=== PATIENT | female | born 1940 | race Caucasian/White ===

== ENCOUNTER 2017-10-08 11:02 | Emergency (ER) | payer OTHER ==
[2017-10-08 11:25] VITALS: BP 106/51; PULSE 67; TEMP 97.7; BMI 23.2
--- NOTE | 2017-10-08 13:04 | PDOC ---
History of Present Illness - General Chief Complaint: Respiratory Stated Complaint: COUGH Time Seen by Provider: 10/08/17 12:37 History Source: Patient Exam Limitations: No Limitations - History of Present Illness Initial Comments: 10/08/17 12:58 Patient is a [77-year-old female, history of anxiety, hypertension, high cholesterol, diabetes, gastric ulcer presents with one week of nasal drainage, dry cough, itchy watery eyes and macular pruritic lesions to the upper chest. She denies any chest pain or shortness of breath. No fever.] Past Medical History: [Denies]. Allergies: No known allergies Medications: [See Medication list] Family History: Non-contributory Social History: Denies smoking, alcohol use, or IVDU Review of Systems GENERAL/CONSTITUTIONAL: [No fever or chills. No weakness. No weight change.] HEAD, EYES, EARS, NOSE AND THROAT: [No change in vision. No ear pain or discharge. No sore throat. Pruritic Watery eyes] CARDIOVASCULAR: [No chest pain or shortness of breath.] RESPIRATORY: [Dry cough, no wheezing, or hemoptysis.] GASTROINTESTINAL: [No nausea, vomiting, diarrhea or constipation. No rectal bleeding.] GENITOURINARY: [No dysuria, frequency, or change in urination.] MUSCULOSKELETAL: [No joint or muscle swelling or pain. No neck or back pain.] SKIN : [No rash or easy bruising. Pruritic Macular lesions to chest] NEUROLOGIC: [No headache, vertigo, loss of consciousness, or loss of sensation.] Physical Exam: GENERAL: [The patient is awake, alert, and fully oriented, in no acute distress. ] EYES: [Pupils equal, round and reactive to light, extraocular movements intact, sclera anicteric, conjunctiva clear.] ENT: [Ears normal, nares patent, oropharynx clear without exudates. Moist mucous membranes. No uvula deviation, itchy watery eyes, redness around eyes. ] NECK: [Normal range of motion, supple without lymphadenopathy, JVD, or masses.] LUNGS: [Breath sounds equal, clear to auscultation bilaterally. No wheezes, and no crackles.] HEART: [Regular rate and rhythm, normal S1 and S2 without murmur, rub or gallop. ] ABDOMEN: [Soft, nontender, normoactive bowel sounds. No guarding, no rebound. No masses. No bruising or abrasions] MUSCULOSKELETAL: [Normal range of motion, no edema. No clubbing or cyanosis. No cords, erythema, or tenderness. No CVA Tenderness with fist.] NEUROLOGICAL: [Cranial nerves II through XII grossly intact. Normal speech, normal gait.] PSYCH: [Normal mood, normal affect. Anxious ] SKIN: [Warm, Dry, normal turgor, Macular lesions to upper chest.] Past History - Past Medical History Allergies/Adverse Reactions: Allergies Allergy/AdvReac Type Severity Reaction Status Date / Time No Known Allergies Allergy Verified 10/08/17 11:22 Home Medications: Ambulatory Orders Amlodipine Besylate 10 mg PO DAILY 07/13/15 Aspirin [ASA -] 81 mg PO DAILY 07/13/15 Donepezil HCl 5 mg PO DAILY 07/13/15 Escitalopram Oxalate [Lexapro -] 20 mg PO DAILY 07/13/15 Loratadine [Allergy Relief] 10 mg PO DAILY 07/13/15 Metoprolol Tartrate 25 mg PO DAILY 07/13/15 Mirtazapine 15 mg PO DAILY 07/13/15 Multivitamins [Multivit ([facility] Formulary)] 1 tab PO DAILY 07/13/15 Simvastatin [Zocor -] 20 mg PO HS 07/13/15 Fluticasone Prop 0.05% Nasal [Flonase -] 1 - 2 spray NS BID #1 spray.pump Hydrocortisone 0.5% Cream [Hytone 0.5% Cream -] 1 applic TP BID #1 tube Loratadine [Claritin -] 10 mg PO DAILY #30 tablet 10/08/17 COPD: No Diabetes: Yes GI Disorders: Yes (ulcers) HTN: Yes Hypercholesterolemia: Yes Psychiatric Problems: Yes (anxiety) - Surgical History Abdominal Surgery: Yes (ulcer) GI Surgery: Yes (?) - Immunization History Immunization Up to Date: Yes - Suicide/Smoking/Psychosocial Hx Smoking History: Current every day smoker Have you smoked in the past 12 months: Yes Number of Cigarettes Smoked Daily: 6 Cigars Per Day: 0 Information on smoking cessation initiated: No 'Breaking Loose' booklet given: 12/21/15 Hx Alcohol Use: Yes (1 beer daily) Drug/Substance Use Hx: No Substance Use Type: None Hx Substance Use Treatment: No *Physical Exam - Vital Signs Last Vital Signs Temp Pulse Resp BP Pulse Ox 97.7 F 67 19 106/51 98 10/08/17 11:22 10/08/17 11:22 10/08/17 11:22 10/08/17 11:22 10/08/17 11:22 Medical Decision Making - Medical Decision Making 10/08/17 13:02 A/P : Patient here for dry cough, itchy watery eyes, macular pruritic lesions to upper chest, patient does have Claritin and Flonase at home but have not been taking it clinical signs indicating allergy type symptoms in no acute distress. Patient with no chest pain or shortness of breath will DC patient with Flonase, Claritin new prescription and hydrocortisone cream to macular lesions of chest, follow-up with PMD in 2 days if symptoms persist if any chest pain or shortness of breath to return immediately to ER. *DC/Admit/Observation/Transfer Diagnosis at time of Disposition: Post-nasal drip, Rash and nonspecific skin eruption Seasonal allergies Qualifiers: Chronicity: acute Allergic rhinitis trigger: unspecified Qualified Code(s): J30.2 - Other seasonal allergic rhinitis - Discharge Dispostion Disposition: HOME Condition at time of disposition: Good Admit: No - Prescriptions Prescriptions: Fluticasone Prop 0.05% Nasal [Flonase -] 1 - 2 spray NS BID #1 spray.pump Hydrocortisone 0.5% Cream [Hytone 0.5% Cream -] 1 applic TP BID #1 tube Loratadine [Claritin -] 10 mg PO DAILY #30 tablet - Referrals Referrals: STAFF,NOT ON [Primary Care Provider] - - Patient Instructions Printed Discharge Instructions: Allergic Rhinitis Additional Instructions: Please start medications as prescribed if symptoms persist in 2 days follow-up with primary care doctor. If any chest pain or shortness of breath return immediately to ER - Post Discharge Activity
== END 2017-10-08 13:07 | disposition home or self-care (01) ==
LOC: JERFT 11:02
DX: J30.2 Other seasonal allergic rhinitis (principal); R21 Rash and other nonspecific skin eruption; I10 Essential (primary) hypertension; E78.00 Pure hypercholesterolemia, unspecified; E11.9 Type 2 diabetes mellitus without complications; F41.9 Anxiety disorder, unspecified
CPT/HCPCS: 99281-25

== ENCOUNTER 2019-02-24 12:02 | Emergency (ER) | payer OTHER ==
[2019-02-24 12:10] VITALS: BP 121/75; PULSE 75; TEMP 97.9; BMI 26.2
--- NOTE | 2019-02-24 13:04 | PDOC ---
History of Present Illness - General Chief Complaint: Vomiting Blood Stated Complaint: VOMITING Time Seen by Provider: 02/24/19 13:03 History Source: Patient Exam Limitations: No Limitations Past History - Travel Traveled outside of the country in the last 30 days: No Close contact w/someone who was outside of country & ill: No - Past Medical History Allergies/Adverse Reactions: Allergies Allergy/AdvReac Type Severity Reaction Status Date / Time No Known Allergies Allergy Verified 02/24/19 12:06 Home Medications: Ambulatory Orders Amlodipine Besylate 10 mg PO DAILY 07/13/15 Aspirin [ASA -] 81 mg PO DAILY 07/13/15 Donepezil HCl 5 mg PO DAILY 07/13/15 Escitalopram Oxalate [Lexapro -] 20 mg PO DAILY 07/13/15 Loratadine [Allergy Relief] 10 mg PO DAILY 07/13/15 Metoprolol Tartrate 25 mg PO DAILY 07/13/15 Mirtazapine 15 mg PO DAILY 07/13/15 Multivitamins [Multivit ([facility] Formulary)] 1 tab PO DAILY 07/13/15 Simvastatin [Zocor -] 20 mg PO HS 07/13/15 Fluticasone Prop 0.05% Nasal [Flonase -] 1 - 2 spray NS BID #1 spray.pump Hydrocortisone 0.5% Cream [Hytone 0.5% Cream -] 1 applic TP BID #1 tube Loratadine [Claritin -] 10 mg PO DAILY #30 tablet 10/08/17 COPD: No Diabetes: Yes GI Disorders: Yes (ulcers) HTN: Yes Hypercholesterolemia: Yes Psychiatric Problems: Yes (anxiety) - Surgical History Abdominal Surgery: Yes GI Surgery: Yes (?) - Immunization History Immunization Up to Date: Yes - Suicide/Smoking/Psychosocial Hx Smoking History: Former smoker Have you smoked in the past 12 months: No Number of Cigarettes Smoked Daily: 10 If you are a former smoker, when did you quit?: 4 Cigars Per Day: 0 Information on smoking cessation initiated: No 'Breaking Loose' booklet given: 08/07/14 Hx Alcohol Use: No Drug/Substance Use Hx: No Substance Use Type: Alcohol Hx Substance Use Treatment: No Abd/GI Specific PMHX - Complaint Specific PMHX Colitis: No Diverticulitis: No Gall Bladder Disease: No GERD: Yes Hepatitis: No Irritable Bowel Synd (IBS): No Pancreatitis: No GI Ulcer Disease: Yes (ulcer perf repair) Review of Systems - Review of Systems Able to Perform ROS?: Yes Is the patient limited Bengali proficient: No Constitutional: Yes: Weight Stable. No: Chills, Diaphoresis, Fever, Loss of Appetite, Malaise, Weakness HEENTM: No: Recent change in vision, Nose Congestion, Throat Pain, Throat Swelling, Difficulty Swallowing Respiratory: Yes: Cough (with reflux). No: Orthopnea, Shortness of Breath, Wheezing, Productive cough, Hemoptysis Cardiac (ROS): No: Chest Pain, Edema, Irregular Heart Rate, Lightheadedness, Palpitations, Syncope, Chest Tightness ABD/GI: Yes: Abdominal Distended, Nausea, Vomiting, Indigestion. No: Blood Streaked Bowels, Constipated, Diarrhea, Difficulty Swallowing, Poor Appetite, Poor Fluid Intake, Rectal Bleeding, Abdominal cramping, Tarry Stools : No: Burning, Dysuria, Frequency, Flank Pain, Hematuria, Pain, Urgency Musculoskeletal: No: Back Pain, Joint Pain, Muscle Weakness Integumentary: No: Rash Neurological: No: Headache, Numbness, Weakness, Unsteady Gait, Dizziness Psychiatric: No: Sleep Pattern Change, Change in Appetite Endocrine: No: Increased Urine, Change in Weight Hematologic/Lymphatic: No: Anemia, Blood Clots, Easy Bleeding, Easy Bruising All Other Systems: Reviewed and Negative *Physical Exam - Vital Signs Last Vital Signs Temp Pulse Resp BP Pulse Ox 97.9 F 75 18 121/75 97 02/24/19 12:06 02/24/19 12:06 02/24/19 12:06 02/24/19 12:06 02/24/19 12:06 - Physical Exam Comments: Vitals stable, pt afebrile. Pt in NAD, normal body habitus. Pt alert and oriented x3. computer networker generally intact, muscular strength and sensation intact. No midline spinal tenderness, step-offs, or crepitus. Head normocephalic, atraumatic. Eyes PERRLA, EOMI. Oropharynx without erythema or exudates, no LAD b/l. No nasal congestion, hearing intact. Clear heart sounds, S1/S2, no JVD, b/l pedal edema, or heart murmur. Clear lung sounds, no respiratory distress, wheezes, crackles, or accessory muscle use. No abdominal or CVA tenderness to palpation, no rebound, no guarding. Abdomen soft, non-distended, and with normoactive bowel sounds. Skin without jaundice or rash. 02/24/19 14:32 ED Treatment Course - LABORATORY CBC & Chemistry Diagram: 02/24/19 14:20 02/24/19 13:53 Medical Decision Making - Medical Decision Making Pt was seen at bedside, also will be seen by attending Dr. Ponce. Pt presenting with Considering worsening acid reflux/gastritis vs gastric/duodenal ulcer vs [place] -[place] 2/2 belching/coughing vs gastric perforation or Boeerhave vs ACS vs infectious (enteritis, pneumonia). Ordered work-up including CBC, CMP, coags, troponin, lipase, ECG, chest x-ray ( eval for free air). Provided viscous lidocaine, 30 mg PO maalox, 20 mg IV pepcid, and 1 L IV NS for improvement of epigastric discomfort/reflux. Will continue to reassess pt and monitor for symptomatic improvement. ECG: Sinus bradycardia, intervals WNL (HR 59, IL 178, QRS 82, QTc 437). No TWIs or significant ST segment changes. No significant changes from prior ECG. 02/24/19 14:32 Pt eloped before receiving discharge paperwork. 02/24/19 16:35 *DC/Admit/Observation/Transfer Diagnosis at time of Disposition: Epigastric pain Gastritis Qualifiers: Gastritis type: unspecified gastritis Chronicity: chronic Gastritis bleeding: presence of bleeding unspecified Qualified Code(s): K29.50 - Unspecified chronic gastritis without bleeding - Discharge Dispostion Disposition: ELOPED Condition at time of disposition: Improved Decision to Admit order: No - Referrals Referrals: Lorrie Graves DO [Staff Physician] - - Patient Instructions Printed Discharge Instructions: DI for Gastritis Additional Instructions: You were seen in the ER today for upper abdominal pain. The results of your labs and imaging today were normal. Please follow-up with your primary care doctor and GI (Dr. Graves) within 1-2 days to discuss your visit and make sure your symptoms have improved. Please return to the ER if you have any worsening pain, development of fevers or chills, loss of consciousness, inability to tolerate food or fluids, or any other concerns. - Post Discharge Activity
[2019-02-24] MEDS ORDERED: LIDOCAINE VISCOUS 2% ORAL/TOP 20 ML UNIT-DOSE CUP MM ONE (13:27)
[2019-02-24] MEDS ORDERED: MAG HYDROX/AL HYDROX/SIMETH 30 ML UNIT-DOSE CUP PO ONE (13:27)
[2019-02-24] MEDS ORDERED: FAMOTIDINE 20 MG/50 ML IVPB 20 MG/50 ML MG IVPB ONE ×2 (13:27→14:49)
[2019-02-24] MEDS ORDERED: SODIUM CHLORIDE 1,000 ML IV STA (13:27)
[2019-02-24 14:19] LABS: INR 0.97 (0.83-1.09); PROTHROMBIN TIME (PATIENT) 11.4 SEC (9.7-13.0)
[2019-02-24 14:24] LABS: ALBUMIN 3.3 g/dl (3.4-5.0); ALK PHOS 59 U/L (45-117); ANION GAP 4 MMOL/L (8-16); BILIRUBIN,TOTAL 0.3 mg/dL (0.2-1); BLOOD UREA NITROGEN 11 mg/dL (7-18); CHLORIDE 106 mmol/L (98-107); CO2 30 mmol/L (21-32); CREATININE 0.8 mg/dL (0.55-1.3); GLUCOSE,RANDOM 97 mg/dL (74-106); LIPASE 129 U/L (73-393); MAGNESIUM 2.3 mg/dL (1.8-2.4); POTASSIUM 4.7 mmol/L (3.5-5.1); SGOT/AST 14 U/L (15-37); SGPT/ALT 20 U/L (13-61); SODIUM 140 mmol/L (136-145)
[2019-02-24 14:29] LABS: EOS % 2.1 % (0-4.5); HEMATOCRIT 41.3 % (32.4-45.2); HEMOGLOBIN 13.7 GM/dL (10.7-15.3); LYMPH % 20.5 % (8-40); MCH 30.3 pg (25.7-33.7); MCHC 33.3 g/dl (32.0-36.0); MEAN CELL VOLUME 91.1 fl (80-96); MEAN PLT VOLUME 8.3 fl (7.5-11.1); MONO % 5.2 % (3.8-10.2); NEUT % 71.2 % (42.8-82.8); PLATELET COUNT 281 K/MM3 (134-434); RBC 4.53 M/mm3 (3.60-5.2); RDW 12.6 % (11.6-15.6); WHITE BLOOD COUNT 8.2 K/mm3 (4.0-10.0)
[2019-02-24] MEDS ORDERED: LIDOCAINE VISCOUS 2% ORAL/TOP 20 ML UNIT-DOSE CUP ONE (14:48)
[2019-02-24] MEDS ORDERED: MAG HYDROX/AL HYDROX/SIMETH 30 ML UNIT-DOSE CUP ONE (14:49)
--- NOTE | 2019-02-24 15:25 | PDOC ---
Documentation entered by Ale Nunez SCRIBE, acting as scribe for Risa Ponce MD. Risa Ponce MD: This documentation has been prepared by the Mayra loabto Sammi, SCRIBE, under my direction and personally reviewed by me in its entirety. I confirm that the documentation accurately reflects all work, treatment, procedures, and medical decision making performed by me. Attending Attestation - Resident Resident Name: Jeanine Paul - ED Attending Attestation I have performed the following: I have examined & evaluated the patient, The case was reviewed & discussed with the resident, I agree w/resident's findings & plan, Exceptions are as noted - HPI HPI: 02/24/19 14:26 The patient is a 79 year old female, with a significant PMH of alzheimer's, HTN , HLD, DM, gastritis (w/ ulcer repair), who presents to the emergency department for evaluation of worsening reflux symptoms for the past month. The patient states that she usually eats one big meal in the afternoon and experiences belching and other reflux symptoms at night. She notes that last night after some belching, she had 4 episodes of emesis with the last episode containing some traces of bright blood. Denies any vomiting since. Denies dark or bloody stools. Patient denies any trouble with tolerating PO. Patients last scope was about 2 years ago and reportedly revealed only gastritis. Denies heavy NSAID use. The patient denies shortness of breath, headache and dizziness. Denies fever, chills, nausea, vomit, diarrhea and constipation. Denies dysuria, frequency, urgency and hematuria. Allergies: NKA Social history: 1 beer every other day, about 4 cups of coffee a day PCP: Dr. Romero - Physicial Exam PE: 02/24/19 15:20 GENERAL: Awake, alert, and fully oriented, in no acute distress. Very pleasant. EYES: PERRLA, EOMI, sclera anicteric, conjunctiva clear ENT: Oropharynx clear without exudates. Moist mucosa NECK: Normal ROM, supple, no lymphadenopathy, JVD, or masses LUNGS: Breath sounds equal, clear to auscultation bilaterally. No wheezes, and no crackles HEART: Regular rate and rhythm, normal S1 and S2, no murmurs, rubs or gallops ABDOMEN: Soft, nontender, normoactive bowel sounds. No guarding, no rebound. No masses EXTREMITIES: Normal range of motion, no edema. No cords, erythema, or tenderness. WWP. NEUROLOGICAL: Normal speech, cranial nerves intact, equal strength and sensation b/l SKIN: Warm, Dry, normal turgor, no rashes or lesions noted. - Medical Decision Making 02/24/19 15:23 79yo F hx alzheimer's, HTN, HLD, DM, gastritis (w/ ulcer repair) presents to the ED with one episode of brb specks in emesis. Bleeding occurred after repetitive vomiting last night. Likely alex silvestre tear. No bleeding since last night. No chest pain, fevers, unlikely esophageal tear. Pt reports no current symptoms of abdominal pain, feels much better after pepcid, maalox, and viscous lidocaine. ABd exam benign. Labs wnl. EKG non ischemic. Likely GERD/gastritis with alex silvestre last night. Pt encouraged to f/u with GI within 1 week. Pt requests DC home REturn precautions given Pt eloped prior to receiving DC paperwork Heart Score/ECG Review #1 02/24/19 18:21 EKG read and interpreted by me: SInus bradycardia, rate 59. Normal axis and intervals. No JAYNA or TWI
--- NOTE | 2019-02-25 12:37 | EKG ---
Test Reason : Blood Pressure : / mmHG Vent. Rate : 059 BPM Atrial Rate : 059 BPM P-R Int : 178 ms QRS Dur : 082 ms QT Int : 442 ms P-R-T Axes : 033 044 060 degrees QTc Int : 437 ms SINUS BRADYCARDIA OTHERWISE NORMAL ECG Confirmed by MD VALENTÍN, LIANNE ([id number]) on 02/25/2019 12:37:32 PM Referred By: Confirmed By:LIANNE LAURA MD
== END 2019-02-24 16:20 | disposition left against medical advice (07) ==
LOC: JER 12:02
PROC: 3E033GC Introduction of Other Therapeutic Substance into Peripheral Vein, Percutaneous Approach (ICD-10-PCS; principal; 2019-02-24)
DX: K29.50 Unspecified chronic gastritis without bleeding (principal); I10 Essential (primary) hypertension; E11.9 Type 2 diabetes mellitus without complications; Z79.84 Long term (current) use of oral hypoglycemic drugs; E78.00 Pure hypercholesterolemia, unspecified; F41.9 Anxiety disorder, unspecified; Z87.11 Personal history of peptic ulcer disease
CPT/HCPCS: 36415; 71046-TC-FY; 80053; 83690; 83735; 84484; 85025; 85610; 93005; 93010; 96365; 99282-25; J7030

== ENCOUNTER 2019-12-10 19:26 | Observation (INO) | payer OTHER ==
[2019-12-10 19:40] VITALS: BMI 25.7
--- NOTE | 2019-12-10 19:44 | PDOC ---
History of Present Illness - General Chief Complaint: Chest Pain Stated Complaint: CHEST PAIN Time Seen by Provider: 12/10/19 19:42 - History of Present Illness Initial Comments: 12/10/19 21:23 79y/o F hx of alzheimer's, HTN, DM. HLD, anxiety, presents to the ER after overdosing on her medications about 6 hours ago. Per daughter at the bedside, she has taken the following medication in the below mentioned doses mirtazapine 15mg simvastatin 40mg norvasc 10mg lexapro 40mg ibandronate 300mg donepezil 10mg Pt reports having a verbal confrontation with another family member and getting agitated. EMS was called to the scene and brought her to hospital She currenly denies any chest pain,headache, lightheadedness, shortness of breath, palpitations, diarrhea, nausea or vomiting. pt can't remember why she took an extra dose of her medications and just reports feeling confused. Past History - Past Medical History Allergies/Adverse Reactions: Allergies Allergy/AdvReac Type Severity Reaction Status Date / Time No Known Allergies Allergy Verified 12/10/19 19:40 Home Medications: Ambulatory Orders Amlodipine Besylate 10 mg PO DAILY 07/13/15 Aspirin [ASA -] 81 mg PO DAILY 07/13/15 Donepezil HCl 5 mg PO DAILY 07/13/15 Escitalopram Oxalate [Lexapro -] 20 mg PO DAILY 07/13/15 Mirtazapine 15 mg PO DAILY 07/13/15 Simvastatin [Zocor -] 20 mg PO HS 07/13/15 COPD: No Diabetes: Yes GI Disorders: Yes (ulcers) HTN: Yes Hypercholesterolemia: Yes Psychiatric Problems: Yes (anxiety) - Surgical History Abdominal Surgery: Yes GI Surgery: Yes (?) - Immunization History Immunization Up to Date: Yes - Psycho Social/Smoking Cessation Hx Smoking History: Never smoked Have you smoked in the past 12 months: No Number of Cigarettes Smoked Daily: 10 If you are a former smoker, when did you quit?: 4 Cigars Per Day: 0 'Breaking Loose' booklet given: 08/07/14 Hx Alcohol Use: No Drug/Substance Use Hx: No Substance Use Type: Alcohol Hx Substance Use Treatment: No Review of Systems - Review of Systems Constitutional: No: Chills, Fever Respiratory: No: Cough, Shortness of Breath Cardiac (ROS): No: Chest Pain, Palpitations ABD/GI: No: Diarrhea, Nausea, Vomiting Integumentary: No: Bruising, Change in Color Neurological: No: Headache *Physical Exam - Vital Signs Last Vital Signs Temp Pulse Resp BP Pulse Ox 97.8 F 78 18 150/70 98 12/10/19 19:37 12/10/19 19:37 12/10/19 19:37 12/10/19 19:37 12/10/19 19:37 - Physical Exam 12/10/19 21:30 Constitutional: Awake, alert, oriented. seems anxious. Head: Normocephalic. Atraumatic Eyes: PERRL. EOMI. Conjunctivae are not pale. ENT: Mucous membranes are moist and intact. Posterior pharynx without exudates or erythema. Uvula midline. Neck: Supple. Full ROM. No lymphadenopathy. Cardiovascular: Regular rate. Regular rhythm. S1, S2 regular. Distal pulses are 2+ and symmetric. Pulmonary/Chest: No evidence of respiratory distress. Clear to auscultation bilaterally No wheezing, rales or rhonchi. Abdominal: Soft and non-distended. There is no tenderness. No rebound, guarding or rigidity. No organomegaly. No palpable masses. Good bowel sounds. Back: No CVA tenderness. Musculoskeletal: No edema. No cyanosis. No clubbing. Full range of motion in all extremities. trace edema . Radial/pedal pulses are intact and 2+ bilaterally Skin: Skin is warm and dry. No petechiae. No purpura. Neurological: Alert and oriented to person, place, and time. Cranial nerves II -XII are grossly intact. Normal speech. Strength is grossly symmetric. Psychiatric: Good eye contact. Normal interaction, affect and behavior. ED Treatment Course - LABORATORY CBC & Chemistry Diagram: 12/11/19 05:35 12/11/19 05:35 Medical Decision Making - Medical Decision Making 12/10/19 20:47 79y/o F hx of alzheimer's, HTN, DM. HLD, anxiety, presents to the ER after overdosing on her medications about 6 hours ago. Poison control center contacted recommending 12 hour observation, labs including (tylenol, salicylates, lft's,). ekg 12/10/19 21:37 Discharge - Discharge Information Problems reviewed: Yes Clinical Impression/Diagnosis: Accidental overdose Qualifiers: Encounter type: initial encounter Qualified Code(s): T50.901A - Poisoning by unspecified drugs, medicaments and biological substances, accidental ( unintentional), initial encounter Condition: Stable - Follow up/Referral - Patient Discharge Instructions - Post Discharge Activity
[2019-12-10] MEDS ORDERED: SIMETHICONE 80 MG TAB.CHEW (FP) PO ONE (20:52)
--- NOTE | 2019-12-10 20:59 | PDOC ---
Documentation entered by Monico Clifton SCRIBE, acting as scribe for Veena Sarabia DO. Veena Sarabia DO: This documentation has been prepared by the Etienne lobato Elijah, SCRIBE, under my direction and personally reviewed by me in its entirety. I confirm that the documentation accurately reflects all work, treatment, procedures, and medical decision making performed by me. Attending Attestation - Resident Resident Name: ZoëGali - ED Attending Attestation I have performed the following: I have examined & evaluated the patient, The case was reviewed & discussed with the resident, I agree w/resident's findings & plan - HPI HPI: 12/10/19 20:33 Patient is a 79 year old female with a significant pmh of alzheimer's, HTN, HLD , DM, gastritis (w/ ulcer repair) who presents today via EMS with a possible overdose of her medication occurring earlier today. Patient reports that she may have taken another dose of the medication that she takes daily. As per patient's daughter, she have have been agitated and have been experiencing a panic attack. At this time patient describes some abdominal pain. Denies Chest pain and vomiting. Allergies: NKA PCP: Dr. Emery - Physicial Exam PE: 12/10/19 19:48 Constitutional: +Anxious and Agitated Head: Normocephalic. Atraumatic Eyes: PERRL. EOMI. Conjunctivae are not pale. ENT: Mucous membranes are moist and intact. Posterior pharynx without exudates or erythema. Uvula midline. Neck: Supple. Full ROM. No lymphadenopathy. Cardiovascular: Regular rate. Regular rhythm. S1, S2 regular. Distal pulses are 2+ and symmetric. Pulmonary/Chest: No evidence of respiratory distress. Clear to auscultation bilaterally No wheezing, rales or rhonchi. Abdominal: Soft and non-distended. There is no tenderness. No rebound, guarding or rigidity. No organomegaly. No palpable masses. Good bowel sounds. Back: No CVA tenderness. Musculoskeletal: No edema. No cyanosis. No clubbing. Full range of motion in all extremities. Nocalf tenderness. Radial/pedal pulses are intact and 2+ bilaterally Skin: Skin is warm and dry. No petechiae. No purpura. Neurological: Alert and oriented to person, place, and time. Cranial nerves II -XII are grossly intact. Normal speech. Strength is grossly symmetric. No sensory deficits. - Medical Decision Making 12/10/19 20:56 a/p: 79yo female with hx of dementia and anxiety, htn, hld with an accidental od of all her meds today -pt took extra norvasc, simvastatin, donepazil, lexapro, ambien -pt states she was arguing with her other daughter, forgot she took her AM meds and took a second dose of her meds -pt arrives anxious with a different daughter at the bedside -pt denies si/hi -c/o feeling gas pains in the abd -pt denies cp/sob. no n/v/d -pt aggitated -resident discussed the case with poison control who recommends 12 hours monitoring and labs, ekg -will send labs, ekg, will give simethicone for gas pains -will monitor and reassess 12/10/19 22:24 labs reviewed and stable 12/10/19 22:24 microblog sent to [facility] for obs placement for 12 hours of monitoring 12/10/19 22:59 discussed the case with [facility] who accept pt to obs tele Discharge - Discharge Information Problems reviewed: Yes Clinical Impression/Diagnosis: Accidental overdose Condition: Fair - Admission Yes - Follow up/Referral - Patient Discharge Instructions - Post Discharge Activity Heart Score/ECG Review - ECG Intrepretation Comment:: 12/10/19 22:24 sinus at 64, nl axis, pvc, nl interval, no acute st/t wave findings
[2019-12-10 21:39] LABS: BASO % 0.8 % (0-2.0); EOS % 1.8 % (0-4.5); HEMATOCRIT 42.4 % (32.4-45.2); HEMOGLOBIN 14.3 GM/dL (10.7-15.3); LYMPH % 16.8 % (8-40); MCH 30.1 pg (25.7-33.7); MCHC 33.8 g/dl (32.0-36.0); MEAN CELL VOLUME 89.1 fl (80-96); MEAN PLT VOLUME 8.3 fl (7.5-11.1); MONO % 4.9 % (3.8-10.2); NEUT % 75.7 % (42.8-82.8); PLATELET COUNT 389 K/MM3 (134-434); RBC 4.76 M/mm3 (3.60-5.2); RDW 12.9 % (11.6-15.6); WHITE BLOOD COUNT 9.6 K/mm3 (4.0-10.0)
[2019-12-10 22:14] LABS: ALBUMIN 3.6 g/dl (3.4-5.0); ALK PHOS 75 U/L (45-117); ANION GAP 4 MMOL/L (8-16); BILIRUBIN,TOTAL 0.2 mg/dL (0.2-1); CALCIUM 9.7 mg/dL (8.5-10.1); CHLORIDE 104 mmol/L (98-107); CO2 30 mmol/L (21-32); CREATININE 0.9 mg/dL (0.55-1.3); GLUCOSE,RANDOM 121 mg/dL (74-106); POTASSIUM 4.2 mmol/L (3.5-5.1); SGOT/AST 23 U/L (15-37); SGPT/ALT 29 U/L (13-61); SODIUM 139 mmol/L (136-145); TOT PROT 7.9 g/dl (6.4-8.2)
[2019-12-11 00:48] LABS: METHADONE, UR NEGATIVE ng/ml (CUTOFF=300); OPIATES, URI NEGATIVE ng/ml (CUTOFF=300); PHENCYCLIDINE,URINE NEGATIVE ng/ml (CUTOFF=25); URINE AMPHETAMINES NEGATIVE ng/ml (CUTOFF=500); URINE BARBITURATES NEGATIVE ng/ml (CUTOFF=200); URINE BENZODIAZEPINES NEGATIVE ng/ml (CUTOFF=200)
--- NOTE | 2019-12-11 03:49 | PN ---
Teaching Attending Note Name of Resident: Terell Vargas ATTENDING PHYSICIAN STATEMENT I saw and evaluated the patient. I reviewed the resident's note and discussed the case with the resident. I agree with the resident's findings and plan as documented. SUBJECTIVE: 79-year-old woman with a history of Alzheimer's disease, pretension, diabetes mellitus, anxiety presents after allegedly overdose on her medications 12/10/2019 in the afternoon. Patient herself is not able to provide history reliably. Her daughter was at bedside providing history previously to ER staff. It was thought that she had taken excessive doses of her home medications including mirtazapine, simvastatin, Lexapro, donepezil, Norvasc. Poison control was contacted from the emergency room, recommended 12-hour observation. OBJECTIVE: Last Vital Signs Temp Pulse Resp BP Pulse Ox 97.8 F 50 L 18 135/67 99 12/10/19 19:37 12/10/19 23:22 12/10/19 23:22 12/10/19 23:22 12/10/19 23:22 GENERAL: Well developed, well nourished. Awake and alert. No acute distress. HEENT: Normocephalic, atraumatic. PERRLA, EOMI. No conjunctival pallor. Sclera are non- icteric. Moist mucous membranes. Oropharynx is clear. NECK: Supple. Full ROM. No JVD. Carotid pulses 2+ and symmetric, without bruits. No thyromegaly. No lymphadenopathy. CARDIOVASCULAR: Regular rate and rhythm. No murmurs, rubs, or gallops. Distal pulses are 2+ and symmetric. PULMONARY: No evidence of respiratory distress. Lungs clear to auscultation bilaterally. No wheezing, rales or rhonchi. ABDOMINAL: Soft. Non-tender. Non-distended. No rebound or guarding. No organomegaly. Normoactive bowel sounds. MUSCULOSKELETAL Normal range of motion at all joints. No bony deformities or tenderness. No CVA tenderness. EXTREMITIES: No cyanosis. No clubbing. No edema. No calf tenderness. SKIN: Warm and dry. Normal capillary refill. No rashes. No jaundice. NEUROLOGICAL: No focal neurological deficits, moves all extremities. PSYCHIATRIC: Cooperative. Good eye contact. Appropriate mood and affect. Abnormal Lab Results 12/10/19 12/10/19 20:58 21:30 Anion Gap 4 L Random Glucose 121 H Salicylates < 1.7 L ASSESSMENT AND PLAN: 79-year-old woman with allegedly overdose on her home medication stated above. Unknown medications that were taken in unknown doses. Currently clinically stable with stable vital signs and no complaints. Will observe on cardiac monitoring for 12 hours. Telemetry observation Check electrolytes including mag, phosphate, potassium Hold her home medications at this time Monitor vital signs closely Follow-up with poison control DVT prophylaxis
--- NOTE | 2019-12-11 03:52 | HP ---
CHIEF COMPLAINT: Presented to the ER after accidentally taking a second dose of Norvasc 10mg and Lexapro 20mg PCP: Dr. Stafford HISTORY OF PRESENT ILLNESS: This is a 79 year old female with PMH of HTN, HLD, dementia, DM, HLD, and anxiety. She presented to the ER after accidentally taking a second dose of Norvasc 10mg and Lexapro 20mg. She is primarily Hungarian speaking, but can understand Dutch. Her daughter was at bedside and assisted in translating. The patient was at her home and received a rather inflammatory phone call from her daughter, who stated that she was coming to see the patient (not the daughter present in the ER). The patient described the daughter as an instigator , and in anticipation of a heated argument, the patient took her Norvasc and Lexipro to prepare for the arrival of her daughter. She forgot the fact that she had already taken these meds in the morning. Once the daughter arrived, the two engaged in an intense argument, resulting in the both of them screaming at each other. The patient became very agitated, and the daughter then began to suspect that her mother had become too agitated, and called an ambulance because she suspected her mother was having a heart attack. The patient denies any chest pain, SOB, palpitations, fevers, chills, nausea, vomiting, but states that she was just anxious and agitated because of the argument. Currently her only symptom is flatulence She denies low mood, suicidal ideation , reduced appetite, low energy, low concentration, and states that she is generally happy. She denies taking any other medications, and states that she took the medication accidentally. She is adamant that she only took the Norvasc and Lexapro, and nothing else. Once in the ER, staff reached out to poison control, who recommended 12 hour observation, tylenol, salicylate panel, and LFTs, and EKG. ER course was notable for: (1) Normal Tylenol, salicylate panel, and LFTs (2) EKG: NSR (3) Simethicone Recent Travel: denies PAST MEDICAL HISTORY: HTN, HLD, dementia, DM, HLD, and anxiety PAST SURGICAL HISTORY: Gastric surgery for "removal of ulcers" manye years ago Tubal ligation Social History: Smoking: Quit 1 year ago, smoked 1.5 PPD for 10 years prior to that Alcohol: A few beers a week (states she drinks [employer] Lite) Drugs: Cocaine a few times a year, last use 3 days ago with her friends Allergies No Known Allergies Allergy (Verified 12/10/19 19:40) HOME MEDICATIONS: Home Medications Medication Instructions Recorded Amlodipine Besylate 10 mg PO DAILY 07/13/15 Aspirin [ASA -] 81 mg PO DAILY 07/13/15 Donepezil HCl 5 mg PO DAILY 07/13/15 Escitalopram Oxalate [Lexapro -] 20 mg PO DAILY 07/13/15 Mirtazapine 15 mg PO DAILY 07/13/15 Simvastatin [Zocor -] 20 mg PO HS 07/13/15 Cyclobenzaprine HCl [Flexeril -] 10 mg PO 12/10/19 Gabapentin [Neurontin -] mg PO 12/10/19 REVIEW OF SYSTEMS CONSTITUTIONAL: Absent: fever, chills, diaphoresis, generalized weakness, malaise, loss of appetite, weight change HEENT: Absent: rhinorrhea, nasal congestion, throat pain, throat swelling, difficulty swallowing, mouth swelling, ear pain, eye pain, visual changes CARDIOVASCULAR: Absent: chest pain, syncope, palpitations, irregular heart rate, lightheadedness , peripheral edema RESPIRATORY: Absent: cough, shortness of breath, dyspnea with exertion, orthopnea, wheezing, stridor, hemoptysis GASTROINTESTINAL: flatulence Absent: abdominal pain, abdominal distension, nausea, vomiting, diarrhea, constipation, melena, hematochezia GENITOURINARY: Absent: dysuria, frequency, urgency, hesitancy, hematuria, flank pain, genital pain MUSCULOSKELETAL: Absent: myalgia, arthralgia, joint swelling, back pain, neck pain SKIN: Absent: rash, itching, pallor HEMATOLOGIC/IMMUNOLOGIC: Absent: easy bleeding, easy bruising, lymphadenopathy, frequent infections ENDOCRINE: Absent: unexplained weight gain, unexplained weight loss, heat intolerance, cold intolerance NEUROLOGIC: Absent: headache, focal weakness or paresthesias, dizziness, unsteady gait, seizure, mental status changes, bladder or bowel incontinence PSYCHIATRIC: Absent: anxiety, depression, suicidal or homicidal ideation, hallucinations. PHYSICAL EXAMINATION Vital Signs - 24 hr 12/10/19 12/10/19 19:37 23:22 Temperature 97.8 F Pulse Rate 78 Pulse Rate [ 50 L Apical] Respiratory 18 18 Rate Blood Pressure 150/70 Blood Pressure 135/67 [Left Arm] O2 Sat by Pulse 98 99 Oximetry (%) GENERAL: Awake, alert, and fully oriented, in no acute distress. HEAD: Normal with no signs of trauma. EYES: Pupils equal, round and reactive to light, extraocular movements intact, sclera anicteric, conjunctiva clear. No lid lag. EARS, NOSE, THROAT: Ears normal, nares patent, oropharynx clear without exudates. Moist mucous membranes. NECK: Normal range of motion, supple without lymphadenopathy, JVD, or masses. LUNGS: Breath sounds equal, clear to auscultation bilaterally. No wheezes, and no crackles. No accessory muscle use. HEART: Regular rate and rhythm, normal S1 and S2 without murmur, rub or gallop. ABDOMEN: Scar in abdomen, midline, from old surgery, no tenderness MUSCULOSKELETAL: Normal range of motion at all joints. No bony deformities or tenderness. No CVA tenderness. UPPER EXTREMITIES: 2+ pulses, warm, well-perfused. No cyanosis. No clubbing. No peripheral edema. LOWER EXTREMITIES: 2+ pulses, warm, well-perfused. No calf tenderness. No peripheral edema. NEUROLOGICAL: Cranial nerves II-XII intact. Normal speech. PSYCHIATRIC: Cooperative. Good eye contact. Appropriate mood and affect. SKIN: Warm, dry, normal turgor, no rashes or lesions noted, normal capillary refill. Laboratory Results - last 24 hr 12/10/19 12/10/19 12/10/19 20:58 20:58 20:58 WBC 9.6 RBC 4.76 Hgb 14.3 Hct 42.4 MCV 89.1 MCH 30.1 MCHC 33.8 RDW 12.9 Plt Count 389 D MPV 8.3 Absolute Neuts (auto) 7.3 Neutrophils % 75.7 Lymphocytes % 16.8 Monocytes % 4.9 Eosinophils % 1.8 Basophils % 0.8 Nucleated RBC % 0 Sodium 139 Potassium 4.2 Chloride 104 Carbon Dioxide 30 Anion Gap 4 L BUN 14.0 Creatinine 0.9 Est GFR (CKD-EPI)AfAm 71.48 Est GFR (CKD-EPI)NonAf 61.67 Random Glucose 121 H Calcium 9.7 Total Bilirubin 0.2 AST 23 ALT 29 Alkaline Phosphatase 75 Total Protein 7.9 Albumin 3.6 Salicylates Opiates Screen Negative Methadone Screen Negative Acetaminophen Barbiturate Screen Negative Phencyclidine Screen Negative Ur Amphetamines Screen Negative MDMA (Ecstasy) Screen Negative Benzodiazepines Screen Negative U Marijuana (THC) Screen Negative Alcohol, Quantitative < 3 12/10/19 12/10/19 12/10/19 21:30 21:30 21:30 WBC RBC Hgb Hct MCV MCH MCHC RDW Plt Count MPV Absolute Neuts (auto) Neutrophils % Lymphocytes % Monocytes % Eosinophils % Basophils % Nucleated RBC % Sodium Potassium Chloride Carbon Dioxide Anion Gap BUN Creatinine Est GFR (CKD-EPI)AfAm Est GFR (CKD-EPI)NonAf Random Glucose Calcium Total Bilirubin AST ALT Alkaline Phosphatase Total Protein Albumin Salicylates < 1.7 L Opiates Screen Methadone Screen Acetaminophen <2.0 Cancelled Barbiturate Screen Phencyclidine Screen Ur Amphetamines Screen MDMA (Ecstasy) Screen Benzodiazepines Screen U Marijuana (THC) Screen Alcohol, Quantitative Cancelled ASSESSMENT/PLAN: 79 year old female with PMH of HTN, HLD, dementia, HLD, and anxiety. She presented to the ER after accidentally taking a second dose of Norvasc 10mg and Lexapro 20mg after getting into a heated argument with her daughter and becoming anxious. #Possible overdose - Patient only complaining of flatulence, Simethicone given - Only took Norvasc 10mg and Lexapro 20mg - Normal Tylenol, salicylate panel, and alcohol levels - LFTs within normal limits - Would F/U with poison control before D/C - EKG unchanged from previous EKG in February 2019 - UTox only positive for cocaine - Will observe with cardiac monitoring and repeat EKG in AM - Will continue home meds for now, hold antihypertensives if pt becomes hypotensive or bradycardic #Hyperglycemia - 121, no hx of DM - Will continue to monitor #FEN - Na controlled diet - K, Mg, Phos ordered - Na controlled diet #DVT - Heparin 5000 SQ Visit type - Emergency Visit Emergency Visit: Yes ED Registration Date: 12/10/19 Care time: The patient presented to the Emergency Department on the above date and was hospitalized for further evaluation of their emergent condition. - New Patient This patient is new to me today: Yes Date on this admission: 12/11/19 - Critical Care Critical Care patient: No ATTENDING PHYSICIAN STATEMENT I saw and evaluated the patient. I reviewed the resident's note and discussed the case with the resident. I agree with the resident's findings and plan as documented. SUBJECTIVE: OBJECTIVE: ASSESSMENT AND PLAN:
[2019-12-11 03:56] LABS: COCAINE, UR POSITIVE ng/ml (CUTOFF=300)
[2019-12-11] MEDS ORDERED: HEPARIN NA (PORCINE) 5,000 UNITS/ML 1ML VIAL SQ SCH (06:00)
[2019-12-11] MEDS ORDERED: HEPARIN NA (PORCINE) 5,000 UNITS/ML 1ML VIAL ONE (06:44)
[2019-12-11 06:50] LABS: BASO % 0.5 % (0-2.0); EOS % 2.7 % (0-4.5); HEMATOCRIT 38.6 % (32.4-45.2); LYMPH % 25.4 % (8-40); MCH 29.9 pg (25.7-33.7); MCHC 33.6 g/dl (32.0-36.0); MEAN CELL VOLUME 88.9 fl (80-96); MEAN PLT VOLUME 8.2 fl (7.5-11.1); MONO % 6.1 % (3.8-10.2); NEUT % 65.3 % (42.8-82.8); PLATELET COUNT 316 K/MM3 (134-434); RBC 4.34 M/mm3 (3.60-5.2); RDW 12.7 % (11.6-15.6); WHITE BLOOD COUNT 7.3 K/mm3 (4.0-10.0)
[2019-12-11 07:59] LABS: ALBUMIN 3.1 g/dl (3.4-5.0); BILIRUBIN,TOTAL 1.1 mg/dL (0.2-1); BLOOD UREA NITROGEN 15.1 mg/dL (7-18); CREATININE 0.8 mg/dL (0.55-1.3); POTASSIUM 3.9 mmol/L (3.5-5.1); TOT PROT 6.7 g/dl (6.4-8.2)
--- NOTE | 2019-12-11 09:34 | PN ---
Teaching Attending Note Name of Resident: Stefania Burns ATTENDING PHYSICIAN STATEMENT I saw and evaluated the patient. I reviewed the resident's note and discussed the case with the resident. I agree with the resident's findings and plan as documented. 10mg Norvasc normally; she took an additional dose of norvasc when upset. The daughter was concerned that the daughter was having a heart attack. Discussed at length with poison control. No hypotension. No suicidal ideation. The patient was trying to "relieve her anxiety." Underlying concerns of substance abuse at home. Discussed with CM/SW but no need to contact APS at this time as mother says she is same. AAO NAD Resting in bed HR wnl, +s1/2 CN2-12 wnl, no fnd Normal mood, low insight which restricts her judgment. ASSESSMENT AND PLAN: Agree with plan per resident note
[2019-12-11] MEDS ORDERED: amLODIPine BESYLATE 10 MG TABLET (FP) PO SCH (10:00)
[2019-12-11] MEDS ORDERED: ASPIRIN 81 MG CHEWABLE TABLETS PO SCH (10:00)
[2019-12-11] MEDS ORDERED: amLODIPine BESYLATE 5 MG TABLET (FP) ONE (10:55)
[2019-12-11] MEDS ORDERED: ASPIRIN 81 MG CHEWABLE TABLETS ONE (10:55)
[2019-12-11 11:11] VITALS: BP 158/85; PULSE 72; TEMP 97.9
--- NOTE | 2019-12-11 11:50 | DS ---
Physical Exam: SUBJECTIVE: Patient seen and examined. Spoke with patient using [employer] interpreting services and also spoke with daughter at bedside. Patient without complaints this morning. Patient and daughter at bedside both state that it is safe for patient to go home and they have a discussion with the patient's other daughter who patient had an arguement with last yesterday. OBJECTIVE: Vital Signs Period Temp Pulse Resp BP Sys/Valdes Pulse Ox Last 24 Hr 97.8 F-97.9 F 50-78 16-18 109-158/65-85 97-99 PHYSICAL EXAM GENERAL: The patient is awake, alert, and fully oriented, in no acute distress. HEAD: Normal with no signs of trauma. EYES: EOMI, no ptosis, no scleral icterus ENT: MMM NECK: Trachea midline, full range of motion, supple. LUNGS: Breath sounds equal, clear to auscultation bilaterally, no wheezes, no crackles, no accessory muscle use. HEART: Regular rate and rhythm, S1, S2 without murmur, rub or gallop. ABDOMEN: Soft, nontender, nondistended, normoactive bowel sounds, no guarding EXTREMITIES: 2+ pulses, warm, well-perfused, no edema. NEUROLOGICAL: Cranial nerves II through XII grossly intact. Normal speech, gait not observed. Sensation intact throughout. 5/5 strength upper and lower extremities PSYCH: Normal mood, normal affect. SKIN: Warm, dry, normal turgor LABS Laboratory Results - last 24 hr 12/10/19 12/10/19 12/10/19 20:58 20:58 20:58 WBC 9.6 RBC 4.76 Hgb 14.3 Hct 42.4 MCV 89.1 MCH 30.1 MCHC 33.8 RDW 12.9 Plt Count 389 D MPV 8.3 Absolute Neuts (auto) 7.3 Neutrophils % 75.7 Lymphocytes % 16.8 Monocytes % 4.9 Eosinophils % 1.8 Basophils % 0.8 Nucleated RBC % 0 Sodium 139 Potassium 4.2 Chloride 104 Carbon Dioxide 30 Anion Gap 4 L BUN 14.0 Creatinine 0.9 Est GFR (CKD-EPI)AfAm 71.48 Est GFR (CKD-EPI)NonAf 61.67 Random Glucose 121 H Calcium 9.7 Phosphorus Magnesium Total Bilirubin 0.2 AST 23 ALT 29 Alkaline Phosphatase 75 Total Protein 7.9 Albumin 3.6 Salicylates Opiates Screen Negative Methadone Screen Negative Acetaminophen Barbiturate Screen Negative Phencyclidine Screen Negative Ur Amphetamines Screen Negative MDMA (Ecstasy) Screen Negative Benzodiazepines Screen Negative Cocaine Screen Positive A* U Marijuana (THC) Screen Negative Alcohol, Quantitative < 3 12/10/19 12/10/19 12/10/19 21:30 21:30 21:30 WBC RBC Hgb Hct MCV MCH MCHC RDW Plt Count MPV Absolute Neuts (auto) Neutrophils % Lymphocytes % Monocytes % Eosinophils % Basophils % Nucleated RBC % Sodium Potassium Chloride Carbon Dioxide Anion Gap BUN Creatinine Est GFR (CKD-EPI)AfAm Est GFR (CKD-EPI)NonAf Random Glucose Calcium Phosphorus Magnesium Total Bilirubin AST ALT Alkaline Phosphatase Total Protein Albumin Salicylates < 1.7 L Opiates Screen Methadone Screen Acetaminophen <2.0 Cancelled Barbiturate Screen Phencyclidine Screen Ur Amphetamines Screen MDMA (Ecstasy) Screen Benzodiazepines Screen Cocaine Screen U Marijuana (THC) Screen Alcohol, Quantitative Cancelled 12/11/19 12/11/19 05:35 05:35 WBC 7.3 RBC 4.34 Hgb 13.0 Hct 38.6 MCV 88.9 MCH 29.9 MCHC 33.6 RDW 12.7 Plt Count 316 MPV 8.2 Absolute Neuts (auto) 4.8 Neutrophils % 65.3 Lymphocytes % 25.4 D Monocytes % 6.1 Eosinophils % 2.7 Basophils % 0.5 Nucleated RBC % 0 Sodium 140 Potassium 3.9 Chloride 106 Carbon Dioxide 27 Anion Gap 7 L BUN 15.1 Creatinine 0.8 Est GFR (CKD-EPI)AfAm 82.42 Est GFR (CKD-EPI)NonAf 71.11 Random Glucose 104 Calcium 9.0 Phosphorus 4.0 Magnesium 2.0 Total Bilirubin 1.1 H AST 19 ALT 24 Alkaline Phosphatase 61 Total Protein 6.7 Albumin 3.1 L Salicylates Opiates Screen Methadone Screen Acetaminophen Barbiturate Screen Phencyclidine Screen Ur Amphetamines Screen MDMA (Ecstasy) Screen Benzodiazepines Screen Cocaine Screen U Marijuana (THC) Screen Alcohol, Quantitative HOSPITAL COURSE: Date of Admission:12/10/19 Date of Discharge: 12/11/19 79 y/o/f with PMHx of HTN, HLD, dementia, HLD, and anxiety. She presented to the ER after accidentally taking a second dose of Norvasc 10mg and Lexapro 20mg after getting into a heated argument with her daughter and becoming anxious. Poison control was contacted and recommended monitoring patient for 12 hours and completing lab testing for salicylates, utox, and LFTs. Patient labs within normal limits. Utox positive only for cocaine. Patient without complaints this morning. Patient states she has safe environment to return home to. Vitals monitoring, one instance of bradycardia to 50 noted overnight, other patient remained normotensive and had a regular heart rate. Stable for discharge home. Counseled patient to stop using cocaine. Minutes to complete discharge: 36 Discharge Summary Problems reviewed: Yes Reason For Visit: ACCIDENTAL OVERDOSE,DEMENTIA Condition: Stable - Instructions Diet, Activity, Other Instructions: You presented to the hospital after taking an extra dose of your Norvasc and Lexapro medications. We contacted poison control who recommended that we monitor you for 12 hours and complete some blood tests. You urine test was positive for cocaine, we strongly recommend that you stop using cocaine as this can cause chest pain and difficulty breathing among other medical conditions. No changes were made to your medications. Follow up with the following physician(s): 1. Please follow up with your primary care provider within one week of discharge for further management of your medical conditions. Activity and Diet 1. Please monitor your diet as you need to consume a diet with less salt, fats and sugars and continue to drink plenty of fluids. Continue all your other medications as prescribed Please return to the ER if you have any signs or symptoms of chest pain, shortness of breath, uncontrollable fever, chills, nausea, vomiting, numbness, tingling, or weakness in any part of your body, changes in vision, or slurred speech. Please return to the ER if symptoms persist, worsen, or new symptoms arise. Referrals: ON STAFF,NOT [Non Staff, Medical] - Disposition: HOME - Home Medications Comprehensive Discharge Medication List: Ambulatory Orders Amlodipine Besylate 10 mg PO DAILY 07/13/15 Aspirin [ASA -] 81 mg PO DAILY 07/13/15 Donepezil HCl 5 mg PO DAILY 07/13/15 Escitalopram Oxalate [Lexapro -] 20 mg PO DAILY 07/13/15 Mirtazapine 15 mg PO DAILY 07/13/15 Simvastatin [Zocor -] 20 mg PO HS 07/13/15 This patient is new to me today: Yes Date on this admission: 12/11/19 Emergency Visit: Yes ED Registration Date: 12/10/19 Care time: The patient presented to the Emergency Department on the above date and was hospitalized for further evaluation of their emergent condition. Critical Care patient: No - Discharge Referral Referred to [facility] No ATTENDING PHYSICIAN STATEMENT I saw and evaluated the patient. I reviewed the resident's note and discussed the case with the resident. I agree with the resident's findings and plan as documented. SUBJECTIVE: OBJECTIVE: ASSESSMENT AND PLAN:
--- NOTE | 2019-12-11 14:27 | EKG ---
Test Reason : Blood Pressure : / mmHG Vent. Rate : 064 BPM Atrial Rate : 064 BPM P-R Int : 146 ms QRS Dur : 080 ms QT Int : 430 ms P-R-T Axes : 033 036 048 degrees QTc Int : 443 ms SINUS RHYTHM WITH OCCASIONAL PREMATURE VENTRICULAR COMPLEXES OTHERWISE NORMAL ECG WHEN COMPARED WITH ECG OF 24-FEB-2019 13:49, PREMATURE VENTRICULAR COMPLEXES ARE NOW PRESENT Confirmed by JER BEJARANO, ROYER ([id number]) on 12/11/2019 2:26:41 PM Referred By: Confirmed By:ROYER RANDLE MD
[2019-12-11] MEDS ORDERED: MIRTAZAPINE 15 MG TABLET (FP) PO SCH (22:00)
[2019-12-11] MEDS ORDERED: ATORVASTATIN CA 10 MG TABLET (FP) PO SCH (22:00)
[2019-12-11] MEDS ORDERED: DONEPEZIL HCL 5 MG TABLET (FP) PO SCH (22:00)
== END 2019-12-11 11:25 | disposition home or self-care (01) ==
LOC: JER 19:26 → JERBED 23:00
PROVIDERS: ADMIT Internal Medicine; ATTEND Internal Medicine
PROC: 3E033GC Introduction of Other Therapeutic Substance into Peripheral Vein, Percutaneous Approach (ICD-10-PCS; principal; 2019-12-10)
DX: T50.911A Poisoning by multiple unspecified drugs, medicaments and biological substances, accidental (unintentional), initial encounter (principal); Y92.009 Unspecified place in unspecified non-institutional (private) residence as the place of occurrence of the external cause; I10 Essential (primary) hypertension; E78.5 Hyperlipidemia, unspecified; E11.65 Type 2 diabetes mellitus with hyperglycemia; G30.9 Alzheimer's disease, unspecified; F02.80 Dementia in other diseases classified elsewhere, unspecified severity, without behavioral disturbance, psychotic disturbance, mood disturbance, and anxiety; F41.9 Anxiety disorder, unspecified; Z79.82 Long term (current) use of aspirin
CPT/HCPCS: 36415; 71046-TC-FY; 80053; 80307; 83735; 84100; 85025; 93005; 93010; 96372; 99285-25; G0378; J1644